=== PATIENT | male | born 2000 | race Caucasian/White ===

== ENCOUNTER 2020-04-23 14:03 | Day surgery (SDC) | payer OTHER ==
[~2020-04-23] VITALS: Ht 182.9 cm; Wt 70.2 kg
[2020-04-23 14:26] VITALS: BP 126/64; PULSE 55; TEMP 97.8
--- NOTE | 2020-04-23 14:38 | NUR ---
TO RM 7- CALL LIGHT IN REACH
[2020-04-23 17:00] VITALS: BP 113/70; PULSE 48; TEMP 98
--- NOTE | 2020-04-23 17:13 | NUR ---
PT TO ROOM 330 PER BED WITH JAMES MARTINO PACU @1705. PT IS SLEEPY BUT AROUSES TO VERBAL, VSS IV TO LAC. GIRLFRIEND AT BEDSIDE.
[2020-04-23 17:20] VITALS: BP 113/69; PULSE 48; TEMP 98
[2020-04-23 17:34] VITALS: BP 109/62; PULSE 46; TEMP 98
[2020-04-23 17:45] VITALS: BP 102/57; PULSE 45; TEMP 98
--- NOTE | 2020-04-23 18:51 | NUR ---
REPORT TO BRAD MARTINO.
--- NOTE | 2020-04-23 19:50 | NUR ---
Patient discharge instructions and scripts discussed and paperwork provided. All questions answered. Patient denies any other questions. Requested a doctors note for work. Dr. Cline was called and message left. Patient did not want to stay and wait for the note. Patient given Urology office number to call in the morning. INT to right AC discontinued. Patient escorted out via wheelchair by surgical staff.
== END 2020-04-23 19:54 | disposition home or self-care (01) ==
LOC: SDCO 14:03 → JCC 17:37 → SDCO 17:37 → JCC 19:54 → SDCO 19:54
DX: N20.1 Calculus of ureter (principal)
CPT/HCPCS: OP; C1769; C1894; J0690; J1100; J1885; J2405; J2704; J3010; J7120; Q9967